=== PATIENT | male | born 2000 | race Caucasian/White ===

== ENCOUNTER 2020-06-03 03:33 | Inpatient (IN) | payer BC, SELFPAY ==
[2020-06-03 04:04] LABS: #Basophils 0.1 thou/uL (0.0-0.2); #Eosinphils 0.1 thou/uL (0.0-0.7); #Lymphocytes 2.4 thou/uL (1.20-3.40); #Monocytes 0.6 thou/uL (0.11-0.59); #Neutrophils 6.1 thou/uL (1.40-6.50); %Basophils 0.8 % (0.0-1.0); %Eosinophils 1.3 % (0.0-10.0); %Lymphocytes 25.3 % (28.0-48.0); %Monocytes 6.9 % (0.0-4.0); %Neutrophils 65.6 % (31.0-61.0); Hemoglobin 13.9 g/dL (14.0-18.0); Mean Corpuscular Hemoglobin 28.4 pg (25.0-35.0); Mean Corpuscular Volume 88.9 fL (78.0-98.0); Platelet Count 236 thou/uL (130-400); RBC Distribution Width 12.3 % (11.5-14.5); Red Blood Cell (RBC) Count 4.89 mill/uL (4.00-5.20); White Blood Cell (WBC) Count 9.3 thou/uL (4.8-10.8)
[2020-06-03] MEDS ORDERED: Ondansetron PF 4 MG/2 ML Vial ONE (04:17)
[2020-06-03 04:24] LABS: ALT (SGPT) 90 U/L (8-55); AST (SGOT) 106 U/L (5-34); Albumin 4.9 g/dL (3.5-5.0); Alkaline Phosphatase 91 U/L (50-130); Anion Gap 17 mmol/L (10-20); BUN (Urea Nitrogen) 11 mg/dL (8.9-20.6); Bilirubin, Total 0.3 mg/dL (0.2-1.2); Calc. Creatinine Clearance 0 mL/min (70-130); Calcium 9.2 mg/dL (7.8-10.44); Carbon Dioxide 21 mmol/L (22-29); Chloride 108 mmol/L (98-107); Globulin 2.8 g/dL (2.4-3.5); Glucose 153 mg/dL (70-105); Potassium 3.3 mmol/L (3.5-5.1); Protein, Total 7.7 g/dL (6.0-8.3); Sodium 143 mmol/L (136-145)
[2020-06-03] MEDS ORDERED: Boostrix 0.5 ML (Tdap) VIAL ONE (05:11)
[2020-06-03] MEDS ORDERED: Morphine 2 MG/ML VIAL SLOW IVP PRN ×3 (06:33→12:41)
[2020-06-03] MEDS ORDERED: Dextrose 50% Abboject 50 ML SYRINGE SLOW IVP PRN (06:33)
[2020-06-03] MEDS ORDERED: Dextrose 5% in Water 1,000 ML IV PRN (06:33)
[2020-06-03] MEDS ORDERED: traMADol HCl 50 MG TAB PO PRN (06:46)
[2020-06-03] MEDS ORDERED: Cyclobenzaprine 10 MG TAB PO PRN (06:46)
[2020-06-03 07:31] LABS: Bacteria/HPF None Seen HPF (None Seen); Bilirubin Negative (Negative); Blood, Urine Trace (Negative); Clarity Clear (Clear); Glucose, Urine (Dipstick) Normal (Negative); Ketone, Urine Negative (Negative); Leukocyte Negative Leu/uL (Negative); Nitrite Negative (Negative); Protein, Urine (Dipstick) 10 mg/dL (Neg-Trace); RBC/HPF 0-3 HPF (0-3); Squamous Epithelial 0-3 HPF (0-3); Urobilinogen Normal mg/dL (Less than 2); WBC/HPF 0-3 HPF (0-3); pH, Urine 5.5 (5.0-9.0)
[2020-06-03 07:34] LABS: SARS-CoV-2 NAA Rapid Test Not Detected (NotDetected)
[2020-06-03 07:36] LABS: Specific Gravity, Urine 1.049 (1.002-1.036)
--- NOTE | 2020-06-03 07:38 | CT ---
PRELIMINARY REPORT/[facility]/AFTER HOURS PROCEDURE CT MAXILLOFACIAL WITHOUT INTRAVENOUS CONTRAST: CLINICAL HISTORY: Fall. TECHNIQUE: Axial computed tomography images of the face without intravenous contrast. Sagittal and coronal refor mations performed. CONTRAST: Without. COMPARISON: None provided. FINDINGS: BONES: The mandible is intact. Acute fracture of the right occipital bone extending to the right occi pital condyle. Acute right zygomaticomaxillary complex fracture. SOFT TISSUES: Gas and soft tissue swelling anterior to the right maxilla. Soft tissue hematoma at the inferior aspect of the right orbit. SINUSES: Hemorrhage in the right maxilla and in the sphenoid sinus. ORBITS: The orbits are normal. No retrobulbar hematoma or mass. IMPRESSION: 1. Acute right zygomaticomaxillary complex fracture with overlying gas and soft tissue swelling. Soft tissue hematoma at the inferior aspect of the right orbit. 2. Hemorrhage in the right maxilla and in the sphenoid sinus. 3. Acute fracture of the right occipital bone extending to the right occipital condyle. ELECTRONICALLY SIGNED BY: Estelle Saunders MD Jun 03, 2020 6:18:44 AM ENGINEERING LAB TECHNICIAN This report is intended for review by the ordering physician only, in accordance of law. If you recei ve this report in error, please call [facility] at [phone]. FINAL REPORT CT FACIAL BONES WITHOUT IV CONTRAST: EMERGENCY AFTER HOURS EXAM 06/03/2020 6:02 a.m. HISTORY: Injury from a fall. FINDINGS: Complex comminuted fractures involving the right zygoma, right maxillary bone, posterior wall of the right orbit, right zygomatic arch, and vertical fracture through the right occipital bone extending into the occipital condyle. Markedly depressed orbital floor fracture with some orbital fat extending into the superior aspect of the right maxillary sinus with extensive hemorrhage in the right maxillary sinus and sphenoid sinus. This report agrees with the preliminary report. CODE QA Transcribed Date/Time: 06/03/2020 8:27 AM
--- NOTE | 2020-06-03 07:50 | CT ---
Final report by Dr. Cole Emergency after-hours study CT BRAIN NONCONTRAST: DATE: 06/03/2020 4:09 AM HISTORY: 20-year-old male status post acute head trauma due to fall downstairs. COMPARISON: none FINDINGS: Agree with preliminary report by [facility]. IMPRESSION: 1) nondisplaced right occipital fracture. 2) acute, traumatic right facial bone fractures. 3) nondisplaced fracture of body of sphenoid bone, including clivus. 4) no acute intracranial hemorrhage or mass effect.
--- NOTE | 2020-06-03 07:56 | CT ---
PRELIMINARY REPORT/[facility]/AFTER HOURS PROCEDURE CT HEAD AND CERVICAL SPINE WITHOUT IV CONTRAST: CLINICAL HISTORY: Fell down flight of stairs, less than 20 feet. No cervical spine tenderness or back pain. TECHNIQUE: Axial computed tomography images were acquired of the head and the cervical spine without intravenous contrast. Sagittal and coronal reformatted images were obtained of the cervical spine. COMPARISON: None provided. FINDINGS: BRAIN: No acute intraparenchymal or intracranial hemorrhage. No midline shift. Evidence of acute te rritorial infarct. VENTRICLES: No hydrocephalus. ORBITS: The orbits are unremarkable. SINUSES AND MASTOIDS: Hemorrhage in the right maxilla. SOFT TISSUES: Soft tissue thickening and gas overlying the right maxilla. BONES: Acute non-displaced fracture of right occipital bone extending into the right occipital condyl e and to the right condylar canal. Acute right zygomaticomaxillary complex fracture. No acute fracture is evident on images of the cervical spine. DISKS/DEGENERATIVE CHANGES: No significant disc or facet degeneration. Posterior cervical spine verte bral body alignment is within normal limits. IMPRESSION: 1. Acute non-displaced fracture of right occipital bone extending into the right occipital condyle an d to the right condylar canal. 2. Acute right zygomaticomaxillary complex fracture with overlying soft tissue swelling and gas. CT of the facial bones obtained for further evaluation. 3. No cervical spine fracture. 4. No acute intracranial hemorrhage. ELECTRONICALLY SIGNED BY: Estelle Saunders MD Jun 03, 2020 4:43:54 AM POLISHER SAND This report is intended for review by the ordering physician only, in accordance of law. If you rece jose this report in error, please call [facility] at [phone]. FINAL REPORT BY DR BRYSON EMERGENCY AFTER HOURS STUDY CT CERVICAL SPINE NONCONTRAST: 06/03/2020 4:09 a.m. HISTORY: CCervical trauma: A 20-year-old male status post fall down stairs. FINDINGS: No major disagreement with preliminary report by [facility]. IMPRESSION: 1) Not mentioned in the preliminary report, there are nondisplaced fractures of the body of the sphen oid bone, including clivus. Large air-fluid level in sphenoid sinus indicates that the fracture probably involves the richardson of the sphenoid sinus. 2) Minimally displaced, slightly comminuted fracture of right occipital condyle. 3) No acute fracture of the cervical spine proper. CODE QA Transcribed Date/Time: 06/03/2020 9:07 AM
--- NOTE | 2020-06-03 08:09 | CT ---
EXAM: Chest abdomen and pelvic CT scanwith IV contrast: Thoracic spine CT scan,limitedwith IV contrast: Lumbar spine CT scan limitedwith IV contrast: PRELIMINARY REPORT EXAM: CT Chest with Intravenous Contrast. CT Abdomen and Pelvis with Intravenous Contrast CLINICAL HISTORY: FELL DOWN FLIGHT OF STAIRS. LESS THAN 20 FEETS. NO CSPINE TENDERNESS OR BACK PAIN. TECHNIQUE: Axial computed tomography images of the chest, abdomen and pelvis with intravenous contrast. CONTRAST: With; ISOVUE 370,80mL COMPARISON: None provided. FINDINGS: CHEST: LUNGS: Some patchy groundglass densities noted in the lungs bilaterally, mostly posteriorly and a little wor se on the right. Appearance is nonspecific could be inflammatory or posttraumatic in nature. No associated rib fractures, pleural fluid, or pneumothorax. HEART AND MEDIASTINUM: No cardiomegaly. No significant pericardial effusion. LYMPH NODES: No lymphadenopathy. ABDOMEN AND PELVIS: LIVER: Unremarkable. No focal lesions. GALLBLADDER AND BILE DUCTS: Unremarkable. No calcified stone. No ductal dilation. PANCREAS: Unremarkable. SPLEEN: Unremarkable. ADRENAL GLANDS: Unremarkable. KIDNEYS, URETERS, AND BLADDER: Unremarkable. No hydronephrosis or nephrolithiasis. No ureteral or bladder calculi. STOMACH AND BOWEL: No obstruction. No wall thickening. No CT evidence of colitis or acute diverticulitis. APPENDIX: No CT evidence for appendicitis. PERITONEUM: No free fluid. No free air. LYMPH NODES: No lymphadenopathy. REPRODUCTIVE: Unremarkable as visualized. VASCULATURE: No aortic aneurysm. BONES AND SOFT TISSUES: There are numerous, very subtle endplate fractures in the thoracic and lumbar spine. Slight anterior wedging at T10 and T11 with endplate fracture is also suspected at L1 T7, possibly T5 and T6 as well. Posterior vertebral margins are intact throughout. No canal or foraminal compromise. IMPRESSION: Bilateral pulmonary contusions with multiple vertebral body fractures. Posterior elements and overall spinal alignment is anatomic. No acute findings in the abdomen or pelvis. ELECTRONICALLY SIGNED BY: Darío Ace MD Jun 03, 2020 4:35:28 AM LINE REPAIRER TOWER This report is intended for review by the ordering physician only, in accordance of law. If you recei ve this report in error, please call [facility] at [phone]. CT CHEST ABDOMEN PELVIS EUN VITAL FINAL REPORT: Exam: Chest, abdomen, and pelvic CT scan with IV contrast: Thoracic spine CT scan with IV contrast: Lumbar spine CT scan with IV contrast: Emergency after exam 4:13 AM 06/03/2020 This is a final report HISTORY: Injury from trauma Evidence for bilateral posterior pulmonary contusions. Evidence for superior endplate mild compression fractures at T10 and T11 with possible additional yony y subtle changes at L1, T7, T5, and T6. Thoracic spine CT scan with IV contrast: Superior endplate compression fractures at T10 and T11 and possible additional injuries of other low er thoracic upper lumbar vertebral. Consider nonemergent follow-up lumbar and thoracic spine MRI for more complete assessment in regards to these potentially subtle superior endplate injuries. Lumbar spine CT scan with IV contrast: Questionable superior endplate irregularity at L1. Bilateral pars defects at L5 with very mild grade 1 anterolisthesis. This report agrees with the preliminary report. Transcribed Date/Time: 06/03/2020 2:40 PM
[2020-06-03 08:15] LABS: Magnesium 1.9 mg/dL (1.7-2.2); Phosphorus 5.3 mg/dL (2.3-4.7)
[2020-06-03 08:22] LABS: Medtox Reader # READER 4
[2020-06-03 08:23] LABS: Amphetamine Not Detected (NotDetected); Barbiturates Screen Not Detected (NotDetected); Benzodiazepine Screen Not Detected (NotDetected); Cocaine Metabolite Screen Not Detected (NotDetected); Medtox Control Line Valid? VALID (VALID); Methadone Not Detected (NotDetected); Methamphetamine Not Detected (NotDetected); Opiate Screen Not Detected (NotDetected); Oxycodone Screen Not Detected (NotDetected); Phencyclidine (PCP) Not Detected (NotDetected); THC/Cannabinoid Screen Not Detected (NotDetected); Tricyclic Screen Not Detected (NotDetected)
--- NOTE | 2020-06-03 09:09 | HP ---
This is Bindu Cortes NP dictating a report for Gerardo Moore MD. REQUESTING PHYSICIAN: Dr. White. CONSULTS: Neurosurgery, Dr. Solis. CHIEF COMPLAINT: Alcohol intoxication, fall from stairs, approximately 10 feet, landing on his back. Positive loss of consciousness. HISTORY OF PRESENT ILLNESS: This is a 20-year-old male who presented to the emergency room via EMS after drinking an unknown amount and attempting to slide down the stairwell railing in which he fell off landing onto the concrete floor. It was reported somewhere less than 10 feet fall onto his back onto concrete. The patient reported nausea and headache. The patient was given Zofran by EMS with improvement. The patient's vital signs were stable. The patient was moving all extremities. The patient also reports back pain and right cheek pain. The patient has a nonproductive cough. The patient states that this cough just started. The patient was Dillon scanned and found to have multiple T-spine fractures and occipital condyle fracture. The patient was given 2 L normal saline in the emergency room and a tetanus injection. PAST MEDICAL HISTORY: Denies. PAST SURGICAL HISTORY: Denies. MEDICATIONS: Denies. ALLERGIES: DENIES. SOCIAL HISTORY: The patient just moved from [facility], student at [employer] and who lives in the dorms. Denies illicit drug use. Denies tobacco use. Occasional alcohol use. REVIEW OF SYSTEMS: A 10-point review of systems is negative unless otherwise indicated in the above HPI. OBJECTIVE: VITAL SIGNS: Blood pressure 130/69, pulse 115, respirations 21, SpO2 of 95% on room air, temperature 98.4. GENERAL: A young male, awake, alert, in moderate distress due to back pain. HEENT: Normocephalic. Ecchymosis, right eyelid, periorbital ecchymosis on the right. Pupils equal bilateral, extraocular muscles intact. No malocclusion. Mucous membranes moist, dried blood on lips. Dried blood, right naris, no septal hematoma. Tympanic membranes without hemotympanum. NECK: Tenderness at C1. Trachea midline. RESPIRATORY: Positive nonproductive cough. Bilateral breath sounds clear. No wheezing, rales, or rhonchi. No chest deformity. CARDIOVASCULAR: Tachycardic. Regular rate and regular rhythm. No murmurs. EXTREMITIES: Abrasions, left forearm. No obvious deformities. Normal range of motion. Neurovascularly intact x4. NEUROLOGIC: GCS 15. Strength 5/5 in all extremities. SKIN: Warm, dry, and pink. LABORATORY DATA: WBC 9.3, RBC 4.89, hemoglobin 13.9, hematocrit 43.5, platelets 236. Sodium 143, potassium 3.3, chloride 108, carbon dioxide 21, BUN 11, creatinine 0.78, estimated GFR greater than 90, glucose 153, calcium 9.2. AST 106, ALT 90, alkaline phos 91, albumin 4.9. Urinalysis; urine specific gravity 1.049, no bacteria. Plasma alcohol 127. Influenza not detected. COVID-19 not detected. DIAGNOSTICS: Brain CT, impression: 1. Nondisplaced right occipital fracture. Acute traumatic right facial bone fracture. Nondisplaced fracture of the body of the sphenoid bone including clivus. 2. No acute intracranial hemorrhage or mass effect. No fracture. Pending official read. Chest, abdomen, and pelvis CT: 1. Patchy ground-glass densities bilaterally, mostly posteriorly and worse on the right. No rib fractures, pleural effusion, or pneumothorax. 2. Numerous very subtle endplate fractures in the thoracic and lumbar spine. Slight anterior wedging at T10 with endplate fracture also suspected at L1, T7, possibly T5 and T6 as well. Posterior vertebral margins are intact. No canal or foraminal compromise. Facial bone CT, impression: Complex comminuted fracture involving the right zygoma, right maxillary bone, posterior wall of the right orbit, right zygomatic arch, vertical fracture through the right occipital bone extending into the occipital condyle. Markedly depressed orbital floor fracture with some orbital fat extending into the superior aspect of the right maxillary sinus with extensive hemorrhage in the right maxillary sinus and sphenoid sinus. ASSESSMENT: 1. Status post fall from stairs, less than 10 feet. 2. Acute alcohol intoxication. 3. Bilateral pulmonary contusions, complex maxilla fracture, occipital bone fracture. 4. T10-11, L1, T7, T5, and T6 spinal fractures. 5. Right occipital fracture. PLAN: Admit to the surgical floor. Maintenance IV fluids. Neurosurgery has ordered a CTLSO brace. The patient will be on full spinal precautions until he is fitted with his brace. PT and OT to evaluate and treat after brace. Pain control. Pulmonary toilet. We will also consult Oral Surgery for facial fractures. The plan will be discussed with the attending after this dictation. Job ID: [id number]
[2020-06-03] MEDS ORDERED: Magnesium 2 GM/50 ML 2 GM in Premix Bag 1 BAG IVPB SCH (09:15)
[2020-06-03] MEDS ORDERED: Potassium Chloride 20 MEQ TAB PO SCH (09:15)
[2020-06-03] MEDS ORDERED: Iopamidol-370 76% 500 ML 1 ML ONE (10:06)
[2020-06-03] MEDS: Senokot S 8.6-50 MG TAB PO SCH ×2 (11:39→19:59)
[2020-06-03] MEDS: Polyethylene Glycol 3350 17 GM Packet PO SCH (11:39)
[2020-06-03] MEDS: Sodium Chloride 0.9% 1,000 ML IV SCH ×2 (11:57→19:59)
[2020-06-03] MEDS: Acetaminophen 500 MG TAB PO SCH ×2 (11:58→17:58)
[2020-06-03] MEDS: Famotidine 20 MG TAB PO SCH ×2 (11:59→19:59)
[2020-06-03] MEDS: Ondansetron PF 4 MG/2 ML Vial IVP PRN (12:11)
--- NOTE | 2020-06-03 12:35 | PRG ---
DATE OF SERVICE: 06/03/2020 Mr. Schulte is a 20-year-old man who reportedly fell 20 feet and sustained craniospinal injury. Review of his head CT demonstrates no intracranial blood products; however, does have a right occipital skull-base fracture with extension laterally into the right occipital condyle. There is no widening or diastasis of the facet at the atlantooccipital segment, but the patient was maintained on cervical collar. This will likely be for the next 6 to 12 weeks. Review of his cervical, thoracic, and lumbar spine, he has no fractures except for T10-T11 anterior middle column, wedging fractures with no worrisome retropulsion or loss of height. We will plan a TLSO clamshell brace for the next 6 to 12 weeks when out of bed. The cervical collar should be worn at all times. The TLSO clamshell brace should be worn whenever out of bed. Neurologically, he is intact and we will arrange follow up in my clinic with repeat upright AP, lateral, and open-mouth odontoid cervical spine x-rays and AP and lateral thoracic spine x-rays. 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 Activity maybe as tolerated. I have corresponded with [facility] regarding the bracing to be a cervical collar and TLSO clamshell brace versus CTLS0. 1. Right occipital condylar and skull base fractures status post fall. 2. Thoracic fracture status post fall. Job ID: [id number]
[2020-06-03] MEDS: Promethazine HCl 12.5 MG in Sodium Chloride 0.9% 50 ML IVPB PRN (16:30)
--- NOTE | 2020-06-03 17:42 | PRG ---
DATE OF SERVICE: 06/03/2020 SUBJECTIVE: The patient was seen this afternoon during rounds. He was standing up with his TLSO brace in place as well as a C-collar. He was working with Physical Therapy. He was pain is controlled. Nursing reports some nausea earlier. Otherwise, the patient has normal motor function and strength. OBJECTIVE: VITAL SIGNS: Temperature 97.5, pulse 90, respirations 16, oxygen saturation 98% on room air, blood pressure 124/78. GENERAL: Well-appearing young male, standing up at the edge of the bed with no signs of acute distress. PULMONARY: Equal chest rise and fall. Clear breath sounds bilaterally. No signs of acute respiratory distress. CARDIAC: Regular rate and rhythm. GI: Abdomen is soft, nontender, nondistended. EXTREMITIES: 2+ pulses in all extremities. Gross motor and sensation intact. No significant swelling noted. NEURO: GCS is 15. Equal and normal strength in the bilateral upper and lower extremities. FACE: The patient has right-sided facial swelling and bruising. Extraocular eye motion is intact. No signs of eye trauma. LABORATORY FINDINGS: There are no new laboratory findings to discuss. DIAGNOSTIC FINDINGS: There are no new diagnostic findings to discuss. ASSESSMENT: 1. Status post fall from stairs. 2. T11 and 12 endplate fractures. 3. Occipital and occipital condyle fractures. 4. Bilateral pulmonary contusions. 5. Right zygomatic arch fracture. 6. Right maxillary fracture. 7. Right posterior orbital wall fracture. 8. Right orbital floor fracture. PLAN: Advanced to regular diet. Start physical and occupational therapy. Replace potassium. Dr. Melendez has evaluated the patient, recommends follow up in one week. No operative intervention. Dr. Solis has evaluated the patient, who recommends TLSO brace with a C-collar for the next 6 weeks and follow up. The patient is not quite yet tolerating a diet and pain is still being managed. We will keep him for another day and evaluate for possible discharge home tomorrow. Job ID: [id number] MTDD
[2020-06-03] MEDS: traMADol HCl 50 MG TAB PO PRN (17:59)
[2020-06-04] MEDS: Acetaminophen 500 MG TAB PO SCH ×4 (00:36→18:03)
[2020-06-04] MEDS: traMADol HCl 50 MG TAB PO PRN ×4 (00:36→22:00)
[2020-06-04] MEDS: Sodium Chloride 0.9% 1,000 ML IV SCH ×2 (00:37→06:53)
[2020-06-04 05:38] LABS: #Lymphocytes 1.2 thou/uL (1.20-3.40); #Monocytes 1.1 thou/uL (0.11-0.59); #Neutrophils 9.4 thou/uL (1.40-6.50); %Basophils 0.1 % (0.0-1.0); %Eosinophils 0.2 % (0.0-10.0); %Lymphocytes 10.2 % (28.0-48.0); %Monocytes 9.4 % (0.0-4.0); %Neutrophils 80.1 % (31.0-61.0); Hemoglobin 11.7 g/dL (14.0-18.0); Mean Corpuscular HGB CONC 32.5 g/dL (32.0-36.0); Mean Corpuscular Hemoglobin 29.1 pg (25.0-35.0); Mean Corpuscular Volume 89.5 fL (78.0-98.0); Mean Platelet Volume 6.8 fL (7.4-10.4); Platelet Count 177 thou/uL (130-400); RBC Distribution Width 12.5 % (11.5-14.5); Red Blood Cell (RBC) Count 4.03 mill/uL (4.00-5.20); White Blood Cell (WBC) Count 11.7 thou/uL (4.8-10.8)
[2020-06-04 06:09] LABS: Anion Gap 9 mmol/L (10-20); BUN (Urea Nitrogen) 11 mg/dL (8.9-20.6); Calc. Creatinine Clearance 150 mL/min (70-130); Calcium 8.4 mg/dL (7.8-10.44); Carbon Dioxide 27 mmol/L (22-29); Chloride 106 mmol/L (98-107); Glucose 96 mg/dL (70-105); Magnesium 2.1 mg/dL (1.7-2.2); Phosphorus 2.4 mg/dL (2.3-4.7); Potassium 3.9 mmol/L (3.5-5.1); Sodium 138 mmol/L (136-145)
[2020-06-04] MEDS ORDERED: PHOS-NAK 1 PKT PACK PO SCH (07:45)
[2020-06-04] MEDS: Famotidine 20 MG TAB PO SCH (08:29)
[2020-06-04] MEDS: Polyethylene Glycol 3350 17 GM Packet PO SCH (08:30)
[2020-06-04] MEDS: Senokot S 8.6-50 MG TAB PO SCH ×2 (08:30→22:01)
[2020-06-04] MEDS ORDERED: Scopolamine 1.5 mg/72 hour Patch TD SCH (11:00)
[2020-06-04] MEDS ORDERED: FLU VACC QS2020-21(6MOS UP)/PF 60 MCG/0.5 ML SYRINGE IM ONE (11:30)
[2020-06-04 12:45] VITALS: BMI 17.7
[2020-06-04] MEDS: Ondansetron PF 4 MG/2 ML Vial IVP PRN (15:09)
[2020-06-04] MEDS: Promethazine HCl 12.5 MG in Sodium Chloride 0.9% 50 ML IVPB PRN (21:16)
[2020-06-05] MEDS: Acetaminophen 500 MG TAB PO SCH ×5 (00:22→23:42)
--- NOTE | 2020-06-05 06:00 | PRG ---
DATE OF SERVICE: 06/04/2020 SUBJECTIVE: The patient is a 20-year-old man who presents after a fall. He sustained injuries including bilateral pulmonary contusions, complex maxilla fracture, and occipital bone fracture. The patient also has a T10-T11, L1, T7, T5, and T6 spinal fractures. On exam today, the patient was lying comfortably in his TLSO brace and C-collar. The patient reports that his pain is relatively well controlled. He denies nausea at this time but does report dizziness worse with standing up. OBJECTIVE: VITAL SIGNS: Temperature 97.1, pulse 79, respiratory rate 14, O2 saturation 92% on room air, and blood pressure 121/74. GENERAL: A well-appearing 20-year-old, lying comfortably in bed. PULMONARY: No acute respiratory distress. Equal chest rise and fall. HEENT: Large contusion over right upper eyelid with significant edema. MUSCULOSKELETAL: Appropriately wearing TLSO and C-collar. Able to move all 4 extremities. NEUROLOGIC: A and O x3. No focal deficits. PSYCHIATRIC: Appropriate mood and affect. DIAGNOSTIC STUDIES: LABORATORY FINDINGS: CBC significant for white blood cell count of 11.7, hemoglobin 11.7, and hematocrit of 36.1. BMP is unremarkable. The patient has a phosphorous of 2.4. DIAGNOSTIC FINDINGS: No new diagnostic findings to discuss. ASSESSMENT: 1. Status post fall from stairs. 2. T11-T12 endplate fractures. 3. Occipital and occipital condyle fractures. 4. Bilateral pulmonary contusions 5. Right zygomatic arch fracture. 6. Right maxillary fracture. 7. Right posterior orbital wall fractures. 8. Right orbital floor fracture. PLAN: Continue regular diet. Continue physical and occupational therapy. Dr. Melendez will follow up with the patient in 1 week. The patient will continue TLSO with C-collar for the next 6 weeks. Will continue to work with therapy. Consider rehab versus [facility] facility placement for this patient pending progress with therapy. Patient was seen and evaluated with Dr. Gaffney who agrees with the plan. Job ID: [id number] [facility]
[2020-06-05] MEDS: traMADol HCl 50 MG TAB PO PRN ×4 (06:26→23:43)
[2020-06-05] MEDS: Senokot S 8.6-50 MG TAB PO SCH ×2 (08:07→20:26)
[2020-06-05] MEDS: Polyethylene Glycol 3350 17 GM Packet PO SCH (08:07)
[2020-06-05] MEDS: Ondansetron PF 4 MG/2 ML Vial IVP PRN (10:04)
--- NOTE | 2020-06-06 06:08 | PRG ---
DATE OF SERVICE: 06/05/2020 SUBJECTIVE: The patient is a 20-year-old man, who presents after a fall. He sustained injuries including bilateral pulmonary contusions, complex maxillary fracture, and occipital bone fracture. The patient also has T10-T11, L1, T7, T5, and T6 spinal fractures. On exam today, the patient was lying comfortably in TLSO brace and C-collar. The patient reports the pain is relatively well controlled and his dizziness is improved from yesterday. He denies nausea at this time. We sat the patient up with no pain and had him work on his ICS. He was able to get approximately 1000 on the incentive spirometer. OBJECTIVE: VITAL SIGNS: Temperature 98.8, pulse 54, respiratory rate 14, O2 saturation 96% on 2 L nasal cannula, and blood pressure 123/71. GENERAL: Well-appearing 20-year-old, lying comfortably in bed. PULMONARY: No acute respiratory distress. HEENT: Large contusion worse over right upper eyelid with significant edema that is improving. MUSCULOSKELETAL: Appropriately wearing TLSO and C-collar. Able to move all 4 extremities. NEUROLOGIC: A and O x3. No focal deficits. PSYCHIATRIC: Appropriate mood and affect. DIAGNOSTIC STUDIES: No new labs or imaging to report. ASSESSMENT: 1. Status post fall from stairs. 2. T11-T12 endplate fractures. 3. Occipital and occipital condyle fractures. 4. Bilateral pulmonary contusions. 5. Right zygomatic arch fracture. 6. Right maxillary fracture. 7. Right posterior orbital wall fracture. 8. Right orbital floor fracture. PLAN: We will continue with regular diet as well as physical and occupational therapy. Dr. Melendez will follow up with the patient in 1 week. Per Neurosurgery, the patient will continue TLSO with C-collar for at least the next 6 weeks. The patient was referred to acute inpatient rehab, which will hopefully be accepted. Consider other placement options if that is denied. Discussed with the patient to continue using the incentive spirometer at least 10 times in 1 hour, all during the day. Nurse reported that O2 saturations dropped into the 70s to 80s whenever the patient is flat and asleep. Hopefully with incentive spirometer use, this will improve and we can wean the required oxygen supplementation. The patient's mother called and plan was discussed with her as well. The patient's father is en route to [facility] and should be here at some point tomorrow. This plan was discussed with Dr. Gaffney, who agrees. Dr. Gaffney evaluated the patient. Job ID: [id number] MTDD
[2020-06-06] MEDS: Acetaminophen 500 MG TAB PO SCH ×3 (07:31→17:24)
[2020-06-06] MEDS: Ondansetron PF 4 MG/2 ML Vial IVP PRN (08:29)
[2020-06-06] MEDS ORDERED: Artificial Tear Sol 15 ML BOT EA EYE PRN (09:37)
[2020-06-06] MEDS: Senokot S 8.6-50 MG TAB PO SCH (10:16)
[2020-06-06] MEDS: Polyethylene Glycol 3350 17 GM Packet PO SCH (10:17)
[2020-06-06] MEDS: traMADol HCl 50 MG TAB PO PRN ×2 (12:05→17:25)
[2020-06-06 16:44] VITALS: BP 125/75; TEMP 97.8
== END 2020-06-06 17:50 | DRG 86 ==
LOC: ERS 03:33 → SURG A 06:15
PROVIDERS: ADMIT Surgery; ATTEND Surgery
DX: S02.113A Unspecified occipital condyle fracture, initial encounter for closed fracture (principal); S22.059A Unspecified fracture of T5-T6 vertebra, initial encounter for closed fracture; S22.069A Unspecified fracture of T7-T8 vertebra, initial encounter for closed fracture; S22.079A Unspecified fracture of T9-T10 vertebra, initial encounter for closed fracture; S22.089A Unspecified fracture of T11-T12 vertebra, initial encounter for closed fracture; S32.019A Unspecified fracture of first lumbar vertebra, initial encounter for closed fracture; S27.322A Contusion of lung, bilateral, initial encounter; S02.31XA Fracture of orbital floor, right side, initial encounter for closed fracture; Z20.822 Contact with and (suspected) exposure to COVID-19; S02.40CA Maxillary fracture, right side, initial encounter for closed fracture; W10.9XXA Fall (on) (from) unspecified stairs and steps, initial encounter; F10.129 Alcohol abuse with intoxication, unspecified; S02.40EA Zygomatic fracture, right side, initial encounter for closed fracture
CPT/HCPCS: 0240U; 36415; 70450; 70486; 71260; 72125; 74177; 80048; 80053; 80306; 80307; 81003; 81015; 83735; 84100; 85025; 90471; 90715; 96374; G0390; J2270; J2405; J2550; J3475; J7620; L0174; L0639; Q9967

== ENCOUNTER 2020-06-27 09:11 | Outpatient (CLI) | payer BC ==
--- NOTE | 2020-06-27 11:21 | RAD ---
EXAM: 3 views of the thoracic spine HISTORY: Thoracic vertebral fracture COMPARISON: CT chest 06/03/2020 FINDINGS: 3 views of the thoracic spine shows slight curvature the spine. There is minimal height los s of approximately 10% of the T10 and T11 vertebral bodies. No degenerative changes are seen. IMPRESSION: Mild wedge compression deformity of T10 and T11.
--- NOTE | 2020-06-27 11:27 | RAD ---
Exam: 3 views cervical spine HISTORY: Patient fell from 3 stories. Occipital fracture. COMPARISON: None Correlation: Cervical spine CT 06/03/2020 FINDINGS: 3 views of the cervical spine are obtained with the patient in a cervical collar. Occipital fracture is difficult to appreciate. There is mild straightening of cervical lordosis which is presumed to be due to the collar. Cervical spine vertebral body height is maintained. No fracture. Di sc space heights are preserved. Predental space is normal. No prevertebral soft tissue swelling On the open-mouth projection, lateral masses of C1 and C2 articulate appropriately. Limited evaluatio n of the odontoid process. On the AP projection, no malalignment IMPRESSION: 1. Inadequate visualization of a known right occipital bone fracture 2. No cervical spine fracture. Positioning of the cervical spine is presumed to be due to cervical co llar.
== END 2020-06-27 09:12 | disposition home or self-care (01) ==
LOC: BICRAD 09:11
PROVIDERS: ATTEND Surgery
DX: S02.119D Unspecified fracture of occiput, subsequent encounter for fracture with routine healing (principal); S22.009A Unspecified fracture of unspecified thoracic vertebra, initial encounter for closed fracture; S02.109A Fracture of base of skull, unspecified side, initial encounter for closed fracture
CPT/HCPCS: 72040; 72072

== ENCOUNTER 2020-08-13 14:14 | Outpatient (CLI) | payer BC | END 2020-08-13 14:15 | disposition home or self-care (01) | LOC: BICRAD 14:14 | PROVIDERS: ATTEND Surgery | DX: S22.009A Unspecified fracture of unspecified thoracic vertebra, initial encounter for closed fracture (principal) | CPT/HCPCS: 72040; 72072 ==